=== PATIENT | female | born 1985 | race Caucasian/White ===

== ENCOUNTER 2018-03-11 01:52 | Emergency (ER) | payer MEDICAID, SELFPAY ==
[2018-03-11 01:53] VITALS: BP 123/89; PULSE 101; RESP 18; TEMP 36.7; O2SAT 94; BMI 22.5
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
[2018-03-11] MEDS: Ibuprofen 600 MG Tablet PO (02:32)
[2018-03-11 05:00] VITALS: RESP 16
--- NOTE | 2018-03-11 07:19 | ED.DEP ---
ED Disposition - Plan for ED Patient: Disposition: Home or Assisted Living Chief Complaint: Other, Pain/Inj Instructions: ED Laceration Facial Sutr Tape Referrals: NOT,DEFINED [NON-STAFF] - Additional Instructions: Please have your sutures removed from your lip laceration in 3-4 days by a healthcare provider. If you cannot find a healthcare provider to remove your sutures, you can return to an urgent care or an emergency department to have this done. Do not leave them in place for more than 4 days. Keep the cut and your other abrasions clean. You may apply antibiotic ointment to your abrasions to help them heal. Wash gently with soap and water daily. If you have any worsening of your condition or any new concerning symptoms, please return immediately to the emergency department for another evaluation.
== END 2018-03-11 07:39 | disposition home or self-care (01) ==
PROVIDERS: Emergency Provider Emergency Medicine
DX: S01.511A Laceration without foreign body of lip, initial encounter (principal); F10.129 Alcohol abuse with intoxication, unspecified; Y90.9 Presence of alcohol in blood, level not specified; S00.91XA Abrasion of unspecified part of head, initial encounter; W17.89XA Other fall from one level to another, initial encounter; Y93.83 Activity, rough housing and horseplay; Y92.9 Unspecified place or not applicable; Y99.9 Unspecified external cause status; S40.212A Abrasion of left shoulder, initial encounter
CPT/HCPCS: 12001; 99281